=== PATIENT | female | born 1995 | race Two or more races ===

== ENCOUNTER 2019-06-28 13:36 | Outpatient (CLI) | payer OTHER | END 2019-06-28 14:45 | disposition home or self-care (01) | LOC: PRENATAL 13:36 | DX: O76 Abnormality in fetal heart rate and rhythm complicating labor and delivery (principal); O36.8930 Maternal care for other specified fetal problems, third trimester, not applicable or unspecified ==

== ENCOUNTER 2019-07-31 16:04 | Inpatient (IN) | payer OTHER ==
[~2019-07-31] VITALS: Ht 160 cm; Wt 64.9 kg
[2019-08-01] MEDS ORDERED: ATABEX DHA 200200 MG PO (10:21)
[2019-08-03] MEDS ORDERED: CLEOCIN HCL300 MG PO (08:35)
== END 2019-08-03 14:36 | DRG 832 ==
LOC: OBS/DEL 16:04 → OB/GYN 08-01 08:23 → LDR 08-01 08:23 → OB/GYN 08-02 13:38
PROVIDERS: ADMIT Obstetrics & Gynecology
PROC: 4A1HXCZ Monitoring of Products of Conception, Cardiac Rate, External Approach (ICD-10-PCS; principal; 2019-08-01)
PROC: BY4FZZZ Ultrasonography of Third Trimester, Single Fetus (ICD-10-PCS; 2019-08-01)
DX: O60.03 Preterm labor without delivery, third trimester (principal); O99.113 Other diseases of the blood and blood-forming organs and certain disorders involving the immune mechanism complicating pregnancy, third trimester; O23.43 Unspecified infection of urinary tract in pregnancy, third trimester; O76 Abnormality in fetal heart rate and rhythm complicating labor and delivery; O40.3XX0 Polyhydramnios, third trimester, not applicable or unspecified; D69.49 Other primary thrombocytopenia

== ENCOUNTER → 2019-08-22 | Outpatient (CLI) | payer OTHER ==
[~2019-08-22] MED LIST: ATABEX DHA 200200 MG PO; CLEOCIN HCL300 MG PO; VALTREX1000 MG PO
== END | disposition home or self-care (01) ==
LOC: PRENATAL 14:30
DX: O36.8131 Decreased fetal movements, third trimester, fetus 1 (principal); O26.843 Uterine size-date discrepancy, third trimester

== ENCOUNTER 2019-08-24 17:21 | Inpatient (IN) | payer OTHER ==
[~2019-08-24] VITALS: Ht 160 cm; Wt 3.6 kg
[~2019-08-24 17:21] MED LIST changes: -VALTREX1000 MG PO
[2019-08-24] MEDS ORDERED: VALTREX1000 MG PO (19:15)
== END 2019-08-28 13:13 | disposition home or self-care (01) | DRG 788 ==
LOC: LDR 17:21 → OB/GYN 17:21 → LDR 17:55 → O/R 08-25 13:14 → OB/GYN 08-25 13:49
PROVIDERS: ADMIT Obstetrics & Gynecology
PROC: 4A1HXCZ Monitoring of Products of Conception, Cardiac Rate, External Approach (ICD-10-PCS; 2019-08-24)
PROC: 4A033R1 Measurement of Arterial Saturation, Peripheral, Percutaneous Approach (ICD-10-PCS; 2019-08-25)
PROC: 10D00Z1 Extraction of Products of Conception, Low, Open Approach (ICD-10-PCS; principal; 2019-08-25 13:15)
DX: O76 Abnormality in fetal heart rate and rhythm complicating labor and delivery (principal); O36.63X0 Maternal care for excessive fetal growth, third trimester, not applicable or unspecified; Z3A.40 40 weeks gestation of pregnancy; Z37.0 Single live birth; Z22.330 Carrier of Group B streptococcus

== ENCOUNTER 2022-08-18 09:06 | Emergency (ER) | payer OTHER ==
[~2022-08-18] VITALS: Ht 160 cm; Wt 64.0 kg
[~2022-08-18 09:06] MED LIST changes: +VALTREX1000 MG PO
[2022-08-18] MEDS ORDERED: TUSSI PRES-B L480 ML PO (12:01)
[2022-08-18] MEDS ORDERED: AMOX-CLAV 875-1 EACH PO (12:01)
== END 2022-08-18 12:08 | disposition home or self-care (01) ==
LOC: ER 09:06
DX: B34.9 Viral infection, unspecified (principal); R53.81 Other malaise; R09.81 Nasal congestion; Z88.6 Allergy status to analgesic agent; Z20.822 Contact with and (suspected) exposure to COVID-19